=== PATIENT | male | born 1960 | race African-American/Black ===

== ENCOUNTER 2019-08-17 21:52 | Emergency (ER) | payer SELFPAY ==
[~2019-08-17] VITALS: Ht 182.8 cm; Wt 74.8 kg
[2019-08-17] MEDS ORDERED: CLINDAMYCIN HC300 MG PO (22:03)
== END 2019-08-17 22:28 | disposition home or self-care (01) ==
LOC: ED 21:52
DX: K04.7 Periapical abscess without sinus (principal); Z88.5 Allergy status to narcotic agent

== ENCOUNTER 2021-05-01 14:27 | Emergency (ER) | payer OTHER ==
[~2021-05-01] VITALS: Ht 172.7 cm; Wt 74.8 kg
[~2021-05-01 14:27] MED LIST: CLINDAMYCIN HC300 MG PO
[2021-05-01 15:38] LABS: BASO # 0.1 10*3/uL (0.0-0.1); BASO % 0.9 % (0.0-1.0); EOS # 0.3 10*3/uL (0.0-0.4); EOS % 5.1 % (1.0-4.0); HEMATOCRIT 47.7 % (42.0-52.0); LYMPH # 2.1 10*3/uL (1.3-4.4); LYMPH % 38.4 % (27.0-41.0); MEAN CELL VOLUME 97.1 fl (80.0-94.0); MEAN CORPUSCULAR HGB 33.2 pg (27.0-31.0); MEAN CORPUSCULAR HGB CONC 34.2 g/dl (33.0-37.0); MEAN PLATELET VOLUME 10.4 fl (9.6-12.3); MONO # 0.5 10*3/uL (0.1-1.0); MONO % 8.4 % (3.0-9.0); NEUT # 2.6 10*3/uL (2.3-7.9); NEUT % 46.8 % (47.0-73.0); PLATELET COUNT AUTOMATED 184 10*3/uL (130-400); RED BLOOD COUNT 4.91 10*6/uL (4.50-5.90); RED CELL DISTRI WIDTH 13.7 % (0-14.5); WHITE BLOOD COUNT 5.5 10*3/uL (4.8-10.8)
[2021-05-01 15:52] LABS: BUN 9 mg/dl (7-24); CHLORIDE 109 mmol/L (98-107); CREATININE 1.13 mg/dL (0.70-1.30); POTASSIUM 4.1 mmol/L (3.5-5.1); SODIUM 136 mmol/L (136-145)
[2021-05-01 16:00] LABS: ALBUMIN 4.1 gm/dl (3.1-4.5); TOTAL PROTEIN 7.5 gm/dL (6.4-8.2)
[2021-05-01 19:07] LABS: BILIRUBIN Negative (Negative); BLOOD Negative (Negative); CLARITY Clear (Clear); COLOR Yellow (Yellow); GLUCOSE Negative (Negative); KETONE Negative (Negative); LEUKO ESTERASE Negative (Negative); NITRITE Negative (Negative); UROBILINOGEN 0.2 E.U./dl (0.0-1.0)
[2021-05-01] MEDS ORDERED: NAPROXEN250 MG PO (19:08)
[2021-05-01] MEDS ORDERED: TYLENOL325 M1 PO (19:08)
[2021-05-01 19:17] LABS: WBC 0-2 wbc/hpf (0-5)
[2021-05-01 19:18] LABS: EPITHELIAL CELLS 0-2; RBC 0-2 rbc/hpf (0-2)
== END 2021-05-01 19:32 | disposition home or self-care (01) ==
LOC: ED 14:27
PROVIDERS: Emergency Medicine
DX: S39.94XA Unspecified injury of external genitals, initial encounter (principal); R30.0 Dysuria; Z88.5 Allergy status to narcotic agent; Z79.2 Long term (current) use of antibiotics; W22.8XXA Striking against or struck by other objects, initial encounter; Y93.89 Activity, other specified; Y92.69 Other specified industrial and construction area as the place of occurrence of the external cause; Y99.0 Civilian activity done for income or pay

== ENCOUNTER → 2021-05-02 | Outpatient (CLI) | payer OTHER ==
[~2021-05-02] MED LIST changes: +NAPROXEN250 MG PO; +TYLENOL325 M1 PO
== END | disposition home or self-care (01) ==
LOC: US 01:00
PROVIDERS: ATTEND Emergency Medicine
DX: N44.2 Benign cyst of testis (principal)